=== PATIENT | male | born 1970 | race Asian ===

== ENCOUNTER 2023-11-21 00:26 | Emergency (ER) | payer SELFPAY ==
[~2023-11-21] VITALS: Ht 175.3 cm; Wt 95.5 kg
[2023-11-21 00:56] VITALS: BP 139/94; PULSE 90; RESP 20; TEMP 98.5; O2SAT 98
== END 2023-11-21 05:45 | disposition left against medical advice (07) ==
LOC: ER 00:26
DX: S99.922A Unspecified injury of left foot, initial encounter (principal); Z53.21 Procedure and treatment not carried out due to patient leaving prior to being seen by health care provider; X58.XXXA Exposure to other specified factors, initial encounter; Y93.89 Activity, other specified; Y92.89 Other specified places as the place of occurrence of the external cause; Y99.8 Other external cause status
CPT/HCPCS: 73620